=== PATIENT | female | born 1950 | race Caucasian/White ===

== ENCOUNTER 2020-01-29 10:33 | Emergency (ER) | payer MEDICARE, MEDICAID ==
[~2020-01-29] VITALS: Ht 157.5 cm; Wt 42.0 kg
[2020-01-29 12:12] VITALS: BP 118/63
--- NOTE | 2020-01-29 12:12 | NUR ---
Patient resting comfortable in bed with multiple warm blankets on her. lights dimmed per request. No other needs at this time.
--- NOTE | 2020-01-29 12:52 | NUR ---
PT PROVIDED DRY, WARM SWEATS, SOCKS AND SNEAKERS.
== END 2020-01-29 13:07 | disposition home or self-care (01) ==
LOC: ER 10:34
DX: T68.XXXA Hypothermia, initial encounter (principal); I49.8 Other specified cardiac arrhythmias; Z85.038 Personal history of other malignant neoplasm of large intestine; X31.XXXA Exposure to excessive natural cold, initial encounter
CPT/HCPCS: 93005; 99285